=== PATIENT | male | born 2000 | race African-American/Black ===

== ENCOUNTER 2023-09-08 11:39 | Emergency (ER) | payer SELFPAY | END 2023-09-08 13:59 | disposition home or self-care (01) | LOC: MW.ED 11:39 | DX: S93.402A Sprain of unspecified ligament of left ankle, initial encounter (principal); Z75.8 Other problems related to medical facilities and other health care; X50.1XXA Overexertion from prolonged static or awkward postures, initial encounter | CPT/HCPCS: 73610-26-LT; 73610-LT; 73630-26-LT; 73630-LT; 99283 ==